=== PATIENT | female | born 1960 | race Caucasian/White ===

== ENCOUNTER → 2016-11-19 | Outpatient (CLI) | payer MEDICAID | END | disposition home or self-care (01) | LOC: CFH 13:41 | PROVIDERS: ATTEND Family Medicine | DX: Z12.31 Encounter for screening mammogram for malignant neoplasm of breast (principal); M81.0 Age-related osteoporosis without current pathological fracture; Z98.82 Breast implant status | CPT/HCPCS: 77080; G0202 ==

== ENCOUNTER 2019-03-23 20:05 | Emergency (ER) | payer MEDICAID ==
[~2019-03-23] VITALS: Ht 162.6 cm; Wt 75.6 kg
[2019-03-23] MEDS ORDERED: PROPARACAINE OPHTH 0.5%, 15ML ONE (20:11)
[2019-03-23] MEDS ORDERED: FLUORESCEIN OPHTHALMIC 1 MG STRIP ONE (20:11)
[2019-03-23] MEDS ORDERED: IBUPROFEN 600 MG TABLET PO ONE (20:30)
[2019-03-23] MEDS ORDERED: POLYTRIM OPHTH 10ML RIGHTEYE STA (20:30)
[2019-03-23] MEDS ORDERED: HYDROcodone/APAP 5/325 TABLET PO ONE (20:30)
[2019-03-23] MEDS ORDERED: IBUPROFEN 600 MG TABLET ONE (20:46)
[2019-03-23] MEDS ORDERED: HYDROcodone/APAP 5/325 TABLET ONE (20:47)
[2019-03-23 21:21] VITALS: BP 141/76
== END 2019-03-23 21:22 | disposition home or self-care (01) ==
LOC: ED 21:10
DX: S05.01XA Injury of conjunctiva and corneal abrasion without foreign body, right eye, initial encounter (principal); X58.XXXA Exposure to other specified factors, initial encounter; Y93.89 Activity, other specified; Y92.89 Other specified places as the place of occurrence of the external cause; Y99.8 Other external cause status
CPT/HCPCS: 99283

== ENCOUNTER 2019-04-23 14:59 | Emergency (ER) | payer MEDICAID ==
[~2019-04-23] VITALS: Ht 162.6 cm; Wt 75.6 kg
[2019-04-23 15:07] VITALS: BP 105/66
[2019-04-23] MEDS ORDERED: DIPH,PERTUSS(ACELL),TET VAC/PF 0.5 ML IM-VACC ONE ×2 (15:17→15:30)
[2019-04-23] MEDS ORDERED: NEOSPORIN OINT. PKT 1 PACKET ONE (15:32)
== END 2019-04-23 15:48 | disposition home or self-care (01) ==
LOC: ED 15:20
DX: S61.216A Laceration without foreign body of right little finger without damage to nail, initial encounter (principal); X58.XXXA Exposure to other specified factors, initial encounter; Y93.89 Activity, other specified; Y92.009 Unspecified place in unspecified non-institutional (private) residence as the place of occurrence of the external cause; Y99.8 Other external cause status
CPT/HCPCS: 90471; 90715